=== PATIENT | female | born 1980 | race Asian ===

== ENCOUNTER 2017-10-12 20:37 | Emergency (ER) | payer OTHER ==
--- NOTE | 2017-10-12 21:18 | ED Physician Documentation ---
History of Present Illness - Stated complaint Stated Complaint: HBP CONCERNS - Chief complaint Chief Complaint: General - History obtained from History obtained from: Patient - History of Present Illness Timing: Today Pain level max: 0 Pain level now: 0 Improved by: no ameliorating factors Worsened by: no exacerbating factors - Additonal information Additional information: had mild generalized headache, mild nausea and thus measured her BP and found it to be 144/107. she took a dose of enalapril (she had recently stopped this medication), and remeasured her BP 10 minutes later and found it to be 167/107. just before leaving her house to come to ED, it was 140/94. MEJIA and nausea have resolved. Review of Systems Eyes: denies: Loss of vision, Decreased vision, Photophobia Cardiac: reports: Reviewed and negative Respiratory: reports: Reviewed and negative GI: reports: Nausea (resolved). denies: Abdominal Pain, Vomiting, Constipation , Diarrhea Neurologic: reports: Headache (resolved). denies: Generalized weakness, Focal weakness, Numbness PD PAST MEDICAL HISTORY - Past Medical History Past Medical History: Yes Cardiovascular: Hypertension - Past Surgical History Past Surgical History: No - Allergies Allergies/Adverse Reactions: Allergies Allergy/AdvReac Type Severity Reaction Status Date / Time No Known Drug Allergies Allergy Verified 10/12/17 20:49 - Living Situation Living Arrangement: reports: At home PD ED PE NORMAL - Vitals Vital signs reviewed: Yes - General General: Alert and oriented X 3, No acute distress, Well developed/nourished - Cardiac Cardiac: RRR, No murmur - Respiratory Respiratory: No respiratory distress, Clear bilaterally - Abdomen Abdomen: Soft, Non tender - Neuro Neuro: Alert and oriented X 3, operations analyst 2-12 intact, No motor deficit, No sensory deficit, Normal speech Eye Opening: Spontaneous Motor: Obeys Commands Verbal: Oriented GCS Score: 15 Results - Vitals Vitals: Vital Signs - 24 hr 10/12/17 10/12/17 10/12/17 20:43 21:17 21:37 Temperature 37.0 C Heart Rate 74 74 76 Respiratory 17 16 16 Rate Blood Pressure 152/97 H 150/95 H 146/100 H O2 Saturation 100 100 100 Oxygen O2 Source Room air PD MEDICAL DECISION MAKING - ED course Complexity details: considered differential, d/w patient ED course: recently stopped taking enalapril and tonight had minimally symptomatic hypertension. 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 she still has elevated blood pressure readings but is asymptomatic; emergent testing not indicated at this time. I instructed her to f/u with PMD, resume taking the enalapril and to take an extra dose tonight when she gets home. - Sepsis Event Vital Signs: Vital Signs - 24 hr 10/12/17 10/12/17 10/12/17 20:43 21:17 21:37 Temperature 37.0 C Heart Rate 74 74 76 Respiratory 17 16 16 Rate Blood Pressure 152/97 H 150/95 H 146/100 H O2 Saturation 100 100 100 Oxygen O2 Source Room air Departure - Departure Disposition: Home, Self Care Clinical Impression: Hypertension Qualifiers: Hypertension type: unspecified Qualified Code(s): I10 - Essential (primary) hypertension Condition: Good Instructions: ED Hypertension Poss Follow-Up: VERENICE Waddell [Provider Group] Comments: I would recommend taking one more dose of the enalapril when you get home, and tomorrow start taking one tablet twice per day. Contact your primary care physician to arrange for next available follow-up, and take your blood pressure 2 or 3 times per day, record the results, and bring these results to your doctor so that they can determine the appropriate medication(s) to control your blood pressure. Discharge Date/Time: 10/12/17 22:05
[2017-10-12 21:38] VITALS: BP 146/100
== END 2017-10-12 22:05 | disposition home or self-care (01) ==
LOC: ED 20:37
DX: I10 Essential (primary) hypertension (principal)
CPT/HCPCS: 99283

== ENCOUNTER 2018-05-14 10:01 | Outpatient (CLI) | payer OTHER ==
--- NOTE | 2018-05-14 14:51 | Ultrasound Report ---
Reason: ESSENTIAL PRIMARY HYPERTENSION Procedure Date: 05/14/2018 Accession Number: [id number] / [id number] Procedure: US - Arterial Visceral Complete CPT Code: FULL RESULT: EXAM: RENAL ARTERY DOPPLER ULTRASOUND EXAM DATE: 05/14/2018 10:57 AM. CLINICAL HISTORY: Essential primary hypertension. COMPARISON: None. TECHNIQUE: Real-time sonographic vascular imaging was performed by the ditching machine engineer through the renal arterial system with a linear transducer utilizing color-flow, Doppler flow, and spectral analysis. Multiple outside medical sales representative static images were saved for review. FINDINGS: There are preserved brisk systolic upstrokes throughout both renal arteries on spectral duplex. Velocities and resistive indices are within normal limits. Right Kidney: 10.5 x 5.0 x 4.6 cm. Echotexture: xWithin normal limits. Right Segmental Artery: Upper pole: PSV 18 cm/sec, RI 0.51. Mid pole: PSV 18 cm/sec, RI 0.54. Lower pole: PSV 22 cm/sec, RI 0.63. Right Renal Artery: Origin: PSV 127 cm/sec, RA/AO 0.83. Proximal: PSV 120 cm/sec, RA/AO 0.78. Mid: PSV 141 cm/sec, RA/AO 0.92. Distal: PSV 98 cm/sec, RA/AO 0.64. Aorta PSV: 153.5 cm/sec. RRV Patent: x. Left Kidney: 10.8 x 5.0 x 4.4 cm. Echotexture: xWithin normal limits. Left Segmental Artery: Upper pole: PSV 18 cm/sec, RI 0.58. Mid pole: PSV 20 cm/sec, RI 0.61. Lower pole: PSV 22 cm/sec, RI 0.60. Left Renal Artery: Origin: PSV 127 cm/sec, RA/AO 0.83. Proximal: PSV 125 cm/sec, RA/AO 0.81. Mid: PSV 129 cm/sec, RA/AO 0.84. Distal: PSV 92 cm/sec, RA/AO 0.60. LRV Patent: x. IMPRESSION: No renal artery stenosis. CRITERIA FOR CLASSIFICATION OF RENAL ARTERY (RA) DISEASE BY DUPLEX SCANNING: RA Diameter Reduction/ RA PSV/ RAR: Normal, < 180 cm/sec, < 3.5 < 60%, >= 180 cm/sec, < 3.5 >= 60%, >= 180 cm/sec, >= 3.5 Total Occlusion: Undetectable; Not applicable RADIA
== END 2018-05-14 10:02 | disposition home or self-care (01) ==
LOC: DI 10:01
PROVIDERS: ATTEND Family Medicine
DX: I10 Essential (primary) hypertension (principal)
CPT/HCPCS: 93975